=== PATIENT | female | born 2000 ===

== ENCOUNTER 2021-12-16 11:38 | Emergency (ER) | payer BC, OTHER ==
[2021-12-16] MEDS ORDERED: Lidocaine 1% 5 ML VIAL INJECT ONE (11:52)
== END 2021-12-16 12:33 | disposition home or self-care (01) ==
LOC: VM.ED 11:38
DX: S61.313A Laceration without foreign body of left middle finger with damage to nail, initial encounter (principal); F17.210 Nicotine dependence, cigarettes, uncomplicated; W23.1XXA Caught, crushed, jammed, or pinched between stationary objects, initial encounter
CPT/HCPCS: 11730; 99283